=== PATIENT | male | born 1960 | race Caucasian/White ===

== ENCOUNTER 2016-12-30 19:05 | Inpatient (IN) | payer OTHER ==
[~2016-12-30] VITALS: Ht 177.8 cm; Wt 90.3 kg
--- NOTE | 2016-12-30 19:24 | ED GENERAL ADULT ---
History of Present Illness General Chief Complaint: Psychiatric Related Complaint Stated Complaint: "I WANT TO KILL MYSELF AND MAYBE YOU TOO" Vital Signs & Intake/Output Vital Signs & Intake/Output Vital Signs Date Time Temp Pulse Resp B/P Pulse O2 O2 Flow FiO2 Ox Delivery Rate 12/30 1911 96.5 109 20 156/98 96 Room Air Room Air Allergies Coded Allergies: No Known Allergies (09/17/16) Triage Note: PT TO ED WITH C/O "MY HOME IS TOO LOUD THERE IS A NEIGHBOR WHO SLEEPS ALL DAY AND IS UP BANGING ALL NIGHT". CALLED THE LANDLORD, AND THE CONCRETE MIXER TRUCK DRIVER THEY BOTH SAY IT'S THE OTHERS PROBLEM. "I FEEL LIKE HURTING MYSELF, PROBABLY TAKING PILLS". 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
--- NOTE | 2016-12-30 19:32 | ED PSYCHIATRIC COMPLAINT ---
History of Present Illness General Chief Complaint: Psychiatric Related Complaint Stated Complaint: "I WANT TO KILL MYSELF AND MAYBE YOU TOO" Source: patient Exam Limitations: no limitations Vital Signs & Intake/Output Vital Signs & Intake/Output Vital Signs Date Time Temp Pulse Resp B/P Pulse O2 O2 Flow FiO2 Ox Delivery Rate 12/31 830 97.7 94 18 141/88 97 Room Air 12/31 0609 98.2 82 20 165/77 96 Room Air 12/30 2312 96.8 85 17 142/88 96 Room Air 12/30 1911 96.5 109 20 156/98 96 Room Air Room Air ED Intake and Output 12/31 0000 12/30 1200 Intake Total Output Total Balance Patient 190 lb Weight Allergies Coded Allergies: No Known Allergies (09/17/16) Reconcile Medications Aripiprazole 5 MG TABLET 1 TAB PO DAILY ANXIETY (Reported) Bupropion HCl (Bupropion XL) 150 MG TAB.ER.24H 1 TAB PO QAM ANXIETY (Reported ) Hydroxyzine Pamoate 25 MG CAPSULE 1 CAP PO BID SLEEP (Reported) Ibuprofen 600 MG TABLET 1 TAB PO TID PAIN (Reported) with food Sertraline HCl 100 MG TABLET 1 TAB PO DAILY DEPRESSION (Reported) Triage Note: PT TO ED WITH C/O "MY HOME IS TOO LOUD THERE IS A NEIGHBOR WHO SLEEPS ALL DAY AND IS UP BANGING ALL NIGHT". CALLED THE LANDLORD, AND THE MINUTE CLERK FOR BASIC TRAFFIC THEY BOTH SAY IT'S THE OTHERS PROBLEM. "I FEEL LIKE HURTING MYSELF, PROBABLY TAKING PILLS". Triage Nurses Notes Reviewed? yes Onset: Abrupt Duration: week(s): (FEW), worse persistent since (TODAY) Timing: recent history Severity: severe HPI: This is a 55-year-old male who presents to the ER voluntarily stating that he can't take it anymore and that he wants to hurt himself. He states that he has been having a lot of arguments with a tenant downstairs in the building. He states that they play loud music and or laterally along and he cannot get any sleep. He is called the police every night for the past 4 nights to complaint. He states that instead of resolving his problems as documented into trouble with coughs. He states at this point he feels the lambert like him to walk out of the place and has no place to go. He states that he is desperate and wants to kill himself. Today he took a few of NyQuil as well as took 4 pills of Benadryl to hurt himself. Although he is not specific. He says that he feels he could harm anybody specifically the tendon. He states he feels less strongly about that at this time. He is very upset. He tried to call [facility] for assistance but that did not work out. (BALDO HILARIO MD) Past History Travel History Traveled to [place] past 21 day No Medical History Any Pertinent Medical History? 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 No (BALDO HILARIO MD) Review of Systems Review of Systems Constitutional: Denies: chills, fever. EENTM: Reports: no symptoms. Respiratory: Denies: cough. Cardiovascular: Denies: chest pain. GI: Reports: no symptoms. Genitourinary: Reports: no symptoms. Musculoskeletal: Reports: no symptoms. Skin: Reports: no symptoms. Neurological/Psychological: Reports: anxiety, depressed, emotional problems. Hematologic/Endocrine: Denies: bruising, bleeding. Immunologic/Allergic: Reports: no symptoms. All Other Systems: Reviewed and Negative (BALDO HILARIO MD) Physical Exam Physical Exam General Appearance: well developed/nourished, alert, awake, anxious, mild distress Head: atraumatic Eyes: Bilateral: PERRL, EOMI. Ears, Nose, Throat: normal pharynx, normal ENT inspection, hearing grossly normal Neck: normal inspection, supple Respiratory: normal breath sounds Cardiovascular: regular rate/rhythm Gastrointestinal: soft, non-tender Extremities: normal range of motion Neurological/Psychiatric: no motor/sensory deficits, awake, alert, calm Appearance/Memory/Insight: impaired insight Behavoir/Eye Contact/Speech: cooperative, normal speech Skin: intact, normal color, warm/dry SAD PERSONS SAD PERSONS Response Value Male Sex? yes 1 Age <19 or >45 years? yes 1 Depression/Hopelessness? yes 2 Previous Attempts/Psych Care yes 1 Rational Thinking Loss? yes 2 Single//? yes 1 Social Support? has no support 1 Stated Future Intent? yes 2 Total 11 SAD PERSONS Done? yes (SULAIMAN HESS,BALDO) Progress Differential Diagnosis: ANXIETY, DEPRESSION, SI, , BIPOLAR, SCHIZOPHRENIA Plan of Care: Orders Procedure Date/time Status Regular Diet 12/31 L Active Regular Diet 12/31 B Complete Admit to inpatient psych 12/31 1059 Active Lab Add-on Test 12/31 105 Active Patient Data - inpatient psych 12/31 1047 Active Admit to inpatient psych 12/31 104 Active Vital Signs 12/31 UNK Active Nursing Misc 12/31 UNK Active Alternative Nursing Therapy 12/31 UNK Active Activity/Ambulation 12/31 UNK Active TSH REFLEX 12/30 1957 Active LIPID PANEL 12/30 1957 Active Continuous Observation Monitor 12/30 1930 Active URINE DRUGS OF ABUSE 12/30 1930 Complete ACETOMINOPHEN 12/30 1930 Active SALICYLATE 12/30 1930 Active ETHANOL 12/30 1930 Active COMPREHENSIVE METABOLIC PANEL 12/30 1930 Active CBC WITHOUT DIFFERENTIAL 12/30 1930 Complete ED CRISIS PSYCH CONSULT 12/30 1930 Active Current Medications Sig/Gallo Start time Last Medication Dose Stop Time Status Admin Acetaminophen 650 MG Q6P PRN 12/31 1100 UNVr (Tylenol) Al Hydroxide/Mg 30 ML Q4-6 PRN PRN 12/31 1100 UNVr Hydroxide (Maalox Plus) Gabapentin 300 MG Q6P PRN 12/31 1100 UNVr (Neurontin) Magnesium Hydroxide 30 ML AT BEDTIME PRN 12/31 1100 UNVr (Milk Of Magnesia) Trazodone HCl 50 MG AT BEDTIME NEED.. 12/31 1100 UNVr (Desyrel) Lisinopril 20 MG DAILY 12/31 1050 UNVr (Prinivil) Aripiprazole 10 MG DAILY 12/31 1049 UNVr (Abilify) Laboratory Tests 12/30/161957: Anion Gap 10, Estimated GFR > 60, BUN/Creatinine Ratio 17.8, Glucose 99, Calcium 9.8, Total Bilirubin 0.7, AST 24, ALT 29, Alkaline Phosphatase 68, Total Protein 7.2, Albumin 4.0, Globulin 3.2, Albumin/Globulin Ratio 1.3, Triglycerides Pending, Cholesterol Pending, LDL Cholesterol, Calc Pending, HDL Cholesterol Pending, Cholesterol/HDL Ratio Pending, TSH &T3 &Free T4 Intrp Pending, CBC w Diff NO MAN DIFF REQ, RBC 5.24, MCV 88.3, MCH 29.5, RDW 13.1, MPV 7.6, Gran % 55.9, Lymphocytes % 32.7, Monocytes % 9.7 H, Eosinophils % 1.2, Basophils % 0.5 , Absolute Granulocytes 5.0, Absolute Lymphocytes 2.9, Absolute Monocytes 0.9 H , Absolute Eosinophils 0.1, Absolute Basophils 0, PUBS MCHC 33.4, Salicylates < 1.0, Acetaminophen < 10.0 L, Serum Alcohol < 10.0 12/30/16 1940: Urine Opiates Screen < 100.00, Methadone Screen < 40, Barbiturate Screen < 60, Ur Phencyclidine Scrn < 6.00, Amphetamines Screen < 100, U Benzodiazepines Scrn < 85, Urine Cocaine Screen < 50, Urine Cannabis Screen < 5.00 Hand-Off Endorsed To: BUSTER ROBERTS MD Endorsed Time: 2300 Pending: consult (CRISIS REEVALUATION IN AM) (BALDO HILARIO MD) Hand-Off Endorsed To: VIOLETTE DEL CID MD Endorsed Time: 07 Pending: consult (BUSTER ROBERTS MD) Departure Departure Disposition: STILL A PATIENT Condition: Stable Clinical Impression Primary Impression: Anxiety Secondary Impressions: Suicidal ideation Referrals: PATIENT HAS NO PRIMARY CARE DR (PCP/Family) Departure Forms: Customer Survey General Discharge Information (BALDO HILARIO MD) Psych Admission Note Psychiatric Admission: I have seen and evaluated ZAID ALLEN. I have also reviewed all the pertinent lab results and diagnostic results. ZAID ALLEN will be admitted to our inpatient Psychiatric unit for treatment and care. (VIOLETTE DEL CID MD)
[2016-12-30 20:07] LABS: ABSOLUTE BASOPHIL COUNT 0 /CUMM (0.0-0.2); ABSOLUTE EOSINOPHIL COUNT 0.1 /CUMM (0.0-0.7); ABSOLUTE LYMPH COUNT 2.9 /CUMM (1.2-3.4); ABSOLUTE MONOCYTE COUNT 0.9 /CUMM (0.10-0.60); BASOPHIL % 0.5 % (0.0-2.0); EOSINOPHIL % 1.2 % (0-5); GRANULOCYTE % 55.9 % (42.2-75.2); HEMATOCRIT 46.3 % (42-52); MEAN CORPUSCULAR HGB 29.5 PG (27.0-31.0); MEAN CORPUSCULAR HGB CONC 33.4 G/DL (33.0-37.0); MEAN CORPUSCULAR VOLUME 88.3 FL (80.0-94.0); MEAN PLATELET VOLUME 7.6 FL (7.4-10.4); PLATELET COUNT 272 /CUMM (130-400); RBC DISTRIBUTION WIDTH 13.1 % (11.5-14.5); RED BLOOD CELL CT 5.24 /CUMM (4.70-6.10); WHITE BLOOD CELL COUNT 8.9 /CUMM (4.8-10.8)
[2016-12-30] MEDS ORDERED: SERTRALINE HCL100 MG PO (20:23)
[2016-12-30] MEDS ORDERED: HYDROXYZINE PAM25 M2 PO (20:23)
[2016-12-30] MEDS ORDERED: ARIPIPRAZOLE5 M1 PO (20:24)
[2016-12-30] MEDS ORDERED: IBUPROFEN600 M1 PO (20:25)
[2016-12-30] MEDS ORDERED: BUPROPION XL150 MG PO (20:26)
--- NOTE | 2016-12-30 22:38 | ED PSYCH CRISIS CONSULTATION ---
Crisis Consult Basic Assessment Date of Consult: 12/30/16 Responsible Person/Accompanied By: self Insurance Authorization: Insurance #1: Insurance name: JOSE ALLEN Phone number: Policy number: [id number] Group number: Authorization number: ED Provider: Patient's ED Provider: BALDO HILARIO MD Primary Care Physician: Patient's PCP: PATIENT HAS NO PRIMARY CARE DR PCP's Phone Number: Current Psychiatrist: [facility] Chief Complaint: Psychiatric Related Complaint Patient's Quote: Where i stay is a nightmare. I vomit and puke it is so bad. Present Illness: Pt is a 56yo male self-presenting at [place] ED this evening with complaint of SI related to conflict with his neighbor in apt below. PT also reports HI stating "I want to choke her. I'd love to see her ". Pt reports neighbor is psychotic and uses crack cocaine and stays up all night banging on the carney and ceiling keeping him awake. He reports getting only 1 hr sleep last evening. He reports that he has attempted to address this with Sally ANGLIN, the landlord and [employer] but reports no one can do anything about it. He reports earlier today taking 4 benadryls and a glass of nyquil to go to sleep but also with the thought that he didn't care if he didn't wake up. Pt has a prior diagnosis of schizophrenia and anxiety d/o and is precribed Zoloft and Abilify. Pt reports current medications help mute the voices. 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 He has a prior hx of inpatient psychiatric treatment at [facility] with most recent 2013 due to superficial cutting. Pt reports no recent sib since 2013. Pt reports a hx of homeless and living at [facility] prior to gaining housing at current residence about 1 yr ago. Pt reports no family supports. he reports both parents are and 2 siblings are related to drug abuse. he reports having one other brother who is drug involved and that they don't have much contact. Pt reports occasional etoh and no drug use since using cocaine in the 80s. Pt reports wanting different housing and states returning to the [facility] would be better than what he is currently enduring. pt presents as somewhat anxious but relatively engaged and forthcoming with history. Patient is alert and OX3. PT will be h/o in ED with plan to re-eval as well as coordinate care with [facility] and [facility] provider. Patient's Address: [address] [place] [address] [place] [address] Other Phone Number: Who Do You Live With? Patient/Self Family/Informants Interviewed: no family identified Allergies - Coded Allergies: No Known Allergies (09/17/16) Current Medications - Scheduled Medications Aripiprazole 5 MG TABLET 1 TAB PO DAILY ANXIETY #30 (Reported) Entered as Reported by SUNITHA BOWENS on 12/30/162023 Bupropion HCl (Bupropion XL) 150 MG TAB.ER.24H 1 TAB PO QAM ANXIETY #30 ( Reported) Entered as Reported by SUNITHA BOWENS on 12/30/162025 Hydroxyzine Pamoate 25 MG CAPSULE 1 CAP PO BID SLEEP #60 (Reported) Entered as Reported by SUNITHA BOWENS on 12/30/162022 Ibuprofen 600 MG TABLET 1 TAB PO TID PAIN #90 (Reported) Entered as Reported by SUNITHA BOWENS on 12/30/162024 Sertraline HCl 100 MG TABLET 1 TAB PO DAILY DEPRESSION #45 (Reported) Entered as Reported by SUNITHA BOWENS on 12/30/162022 Laboratory Results: Laboratory Tests 12/30/161957: Anion Gap 10, Estimated GFR > 60, BUN/Creatinine Ratio 17.8, Glucose 99, Calcium 9.8, Total Bilirubin 0.7, AST 24, ALT 29, Alkaline Phosphatase 68, Total Protein 7.2, Albumin 4.0, Globulin 3.2, Albumin/Globulin Ratio 1.3, CBC w Diff NO MAN DIFF REQ, RBC 5.24, MCV 88.3, MCH 29.5, RDW 13.1, MPV 7.6, Gran % 55.9, Lymphocytes % 32.7, Monocytes % 9.7 H, Eosinophils % 1.2, Basophils % 0.5, Absolute Granulocytes 5.0, Absolute Lymphocytes 2.9, Absolute Monocytes 0.9 H, Absolute Eosinophils 0.1, Absolute Basophils 0, PUBS MCHC 33.4, Salicylates < 1.0, Acetaminophen < 10.0 L, Serum Alcohol < 10.0 12/30/161939: Urine Opiates Screen < 100.00, Methadone Screen < 40, Barbiturate Screen < 60, Ur Phencyclidine Scrn < 6.00, Amphetamines Screen < 100, U Benzodiazepines Scrn < 85, Urine Cocaine Screen < 50, Urine Cannabis Screen < 5.00 (JOSE FLOREZ LCSW) Past History Past Medical History Neurological: NONE EENT: NONE Cardiovascular: hypertension Respiratory: NONE Gastrointestinal: NONE Hepatic: NONE Renal: NONE Musculoskeletal: NONE Psychiatric: bipolar disease, schizophrenia, SUICIDE ATTEMPT Endocrine: NONE Blood Disorders: NONE Cancer(s): NONE 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 pt is medication compliant Physical Limitations (Interventions): n/a Psychiatric Treatment History Psych Treatment Psychiatric Treatment Yes Inpatient Treatment Yes Outpatient Treatment Yes Location of Treatment Inpatient [facility] - last 2013; current outpatient [facility] Reason for Treatment schizophrenia anxiety Response to Treatment treatment and medication compliant Diagnosis by History: Pt reports Schizaophrenia, ADHD, Autism Substance Use/Abuse History Drug Use/Abuse Substances Used/Abused No Substance Abuse Treatment Substance Abuse Treatment Past Substance Abuse [place] No Inpatient Treatment No Outpatient Treatment No Comments: reports occasional etoh. reports cocaine use in the 80s. (JOSE FLOREZ LCSW) Current Mental Status Mental Status Orientation: Person, Place, Situation Affect: Anxious Speech: WNL Neuro-vegetative: Helpless, Sleep Disturbance Appearance Appearance- Dress/Hygiene: hospital scrubs, glasses, Behaviors Thought Process: Flight of Ideas Thought Content: Auditory Hallucinations Memory: WNL Insight: Fair SI/HI Risk Assessment Past Suicidal Ideation/Attempts Yes Current Suicidal Ideation/Att Yes Past Homicidal Ideation/Att: No Current Homicidal Ideation/Attempts No Degree of Intent: Thoughts/No Intent Danger To: Others, Self Gravely Disabled: Poor Impulse Control Risk Factors: high anxiety/distress, history of suicide atmpts, SA/MH hospitalized, isolate/no social support, lives alone, male, limited support Lethality Ratin PTSD Checklist PTSD Done? patient declined ED Management Sitter: Yes Restraints: No (JOSE FLOREZ LCSW) DSM5/PS Stressors/Medical Prob Diagnosis' (DSM 5, Stressors, Medical): Schizophrenia(F20.9) Unspecified anxiety d/o (F41.9) housing Current GAF: 35 Comments: pt is highly reactive and anxious regarding his report of downstairs tenant being up all night banging and making noise so he is unable to sleep. Pt reports he only slept 1hr last evening and can't take it anymore. Pt reports that he took 4 benadryls and a glass of nyquil earlier today to sleep but also had thoughts that it would be better if he didn't wake up. (JOSE FLOREZ LCSW) Departure Disposition Psych Medical Clearance Date: 12/30/16 Medically Cleared at: 2129 Time Started: 2134 Time Ended: 2214 Psychiatrist Consulted: Suzanna Dacosta MD Disposition Established: 12/30/16 Time Disposition Established: 2219 Plan for Disposition - Modality: H/O re-eval Facility: [facility] Rationale for Disposition: Pt has passive SI situational to conflict with tenant downstairs. Plan to h/o and re-eval in morning with opportunity to discuss case with [facility] contact and [facility] provider. Referrals PATIENT HAS NO PRIMARY CARE DR (PCP/Family) (JOSE FLOREZ LCSW) Disposition Psych Medical Clearance Date: 12/31/16 Time Started: 929 Time Ended: 954 Psychiatrist Consulted: Almas Weaver MD Disposition Established: 12/31/16 Time Disposition Established: 929 Plan for Disposition - Modality: Inpatient Psychiatry Facility: [facility] Rationale for Disposition: Mood stablization and safety. Type of IP Admission: Voluntary (SHAWN RAMIREZ,KOURTNEY) Addendum Addendum Pt presented this morning with SI and HI. Pt said he wanted to and hopes he would not wake up. He expressed he does not feel safe returning to his apartment as he is worried about his neighbor getting hurt and himself, " I think she has a record so it is not a good situation and I don't want to get arrested." Pt reported his plan is to continue using Nyquil with his medications Zoloft and Abilify and "wouldn't mind not waking up." Pt reports no social or family supports and feels he is not getting the help he needs at this time. He reports 10/10 for depression, poor appetite and feeling nausea due to loss of sleep and anxiety. He said the landlord has not taken care of this situation yet. Pt has been living there for 11 mos since December 2015. Pt is willing to be admitted voluntarily for mood stablization and safety. This advertising copywriter attempted to collect collateral information from [facility] housing:Candice [phone] x [phone] , [facility]: prescriber (?) Cheli: [phone] Krystina ([facility]) reported he is not being seen clinically by [facility] and transferred advertising copywriter to Chinyere's packing and final assembly supervisor, Gregg for collateral information in shelter case manager is out on vacation. Gregg , hvac manager packing and final assembly supervisor, was not available. Chinyere Sepulvedaadrian(hvac manager) [phone] x [phone]: Reports pt does not have a history of being violent but preseverates on the tenant downstairs. They are "working to rectify the situation". He is observed to suffer from hallucinations and paranoid thoughts toward others " thinks he cannot walk by [facility] because the workers are talking about him" . Chinyere expressed the situation has caused a lot of distress for him and has seen a notable decline in his mental health. (SHAWN RAMIREZ,KOURTNEY)
--- NOTE | 2016-12-31 10:38 | IP CRISIS DIAG ASSESS PSYCH ---
Diagnostic Assessment Basic Assessment Insurance Authorization: Insurance #1: Insurance name: JOSE ALLEN Phone number: Policy number: [id number] Group number: Authorization number: [id number] Primary Care Physician: Patient's PCP: PATIENT HAS NO PRIMARY CARE DR PCP's Phone Number: Patient's Quote: Where i stay is a nightmare. I vomit and puke it is so bad. Present Illness: Pt is a 56yo male self-presenting at [place] ED this evening with complaint of SI related to conflict with his neighbor in apt below. PT also reports HI stating "I want to choke her. I'd love to see her ". Pt reports neighbor is psychotic and uses crack cocaine and stays up all night banging on the carney and ceiling keeping him awake. He reports getting only 1 hr sleep last evening. He reports that he has attempted to address this with Fernando ANGLIN, the landlord and [facility] but reports no one can do anything about it. He reports earlier today taking 4 benadryls and a glass of nyquil to go to sleep but also with the thought that he didn't care if he didn't wake up. Pt has a prior diagnosis of schizophrenia and anxiety d/o and is precribed Zoloft and Abilify. Pt reports current medications help mute the voices. He reports intermodal customer service engagement in treatment at [facility]. He has a prior hx of inpatient psychiatric treatment at [place] with most recent 2013 due to superficial cutting. Pt reports no recent sib since 2013. Pt reports a hx of homeless and living at [facility] prior to gaining housing at current residence about 1 yr ago. Pt reports no family supports. he reports both parents are and 2 siblings are related to drug abuse. he reports having one other brother who is drug involved and that they don't have much contact. Pt reports occasional etoh and no drug use since using cocaine in the 80s. Pt reports wanting different housing and states returning to the jail would be better than what he is currently enduring. pt presents as somewhat anxious but relatively engaged and forthcoming with history. Patient is alert and OX3. PT will be h/o in ED with plan to re-eval as well as coordinate care with [facility] and [facility].>>>>>Yeyo Holley [facility] Pt presented this morning with SI and HI. Pt said he wanted to and hopes he would not wake up. He expressed he does not feel safe returning to his apartment as he is worried about his neighbor getting hurt and himself, " I think she has a record so it is not a good situation and I don't want to get arrested." Pt reported his plan is to continue using Nyquil with all his medications Zoloft and Abilify and "wouldn't mind not waking up." Pt reports no social or family supports and feels he is not getting the help he needs at this time. He reports 10/10 for depression, poor appetite and feeling nausea due to loss of sleep and anxiety. He said the landlord has not taken care of this situation yet. Pt has been living there for 11 mos since December 2015. Pt is willing to be admitted voluntarily for mood stablization and safety. This designer/writer attempted to collect collateral information from [facility] housing:Candice [phone] x [phone] , [facility]: prescriber (?) Cheli: [phone] Krystina ([facility]) reported he is not being seen clinically by [facility] and transferred designer/writer to Chinyere's watch supervisor, Gregg for collateral information in case manager specialist is out on vacation. Gregg , manager military watch supervisor, was not available. Chinyere Ratliff (manager military) [phone] x [phone]: Reports pt does not have a history of being violent but preseverates on the tenant downstairs. They are "working to rectify the situation". He is observed to suffer from hallucinations and paranoid thoughts toward others " thinks he cannot walk by [facility] because the workers are talking about him" . Chinyere expressed the situation has caused a lot of distress for him and has seen a notable decline in his mental health. Patient's Address: [place] [id number] Other Phone Number: Who Do You Live With? Patient/Self Feel Safe Where You Live? No Marital Status: single Do You Have Children? No Primary Language? Singaporean Language(s) Spoken At Home: Singaporean Family/Informants Interviewed: no family identified Allergies - Coded Allergies: No Known Allergies (09/17/16) Current Medications - Scheduled Medications Aripiprazole 5 MG TABLET 1 TAB PO DAILY ANXIETY #30 (Reported) Entered as Reported by SUNITHA BOWENS on 12/30/162023 Bupropion HCl (Bupropion XL) 150 MG TAB.ER.24H 1 TAB PO QAM ANXIETY #30 ( Reported) Entered as Reported by SUNITHA BOWENS on 12/30/162025 Hydroxyzine Pamoate 25 MG CAPSULE 1 CAP PO BID SLEEP #60 (Reported) Entered as Reported by SUNITHA BOWENS on 12/30/162022 Ibuprofen 600 MG TABLET 1 TAB PO TID PAIN #90 (Reported) Entered as Reported by SUNITHA BOWENS on 12/30/162024 Sertraline HCl 100 MG TABLET 1 TAB PO DAILY DEPRESSION #45 (Reported) Entered as Reported by SUNITHA BOWENS on 12/30/162022 Past History Past Surgical History Surgical History R SHOULDER, DEV SEPTUM, INGUINAL HERNIA X 3 Abuse/Trauma History Trauma History/Current Trauma: Denies Legal History Current Legal Status: none Have you ever been arrested? Yes Pending Court Dates: denied Maintenance Dispatcher denied Psychosocial History Strengths/Capabilities: The pt is able to articulate his needs, the pt is connected to an outpatient provider. pt is medication compliant Physical Limitations (Interventions): n/a Psychiatric Treatment History Psych Treatment Psychiatric Treatment Yes Inpatient Treatment Yes Outpatient Treatment Yes Location of Treatment Inpatient [place] - last 2013; current outpatient [facility] Reason for Treatment schizophrenia anxiety Response to Treatment treatment and medication compliant Diagnosis by History: Pt reports Schizaophrenia, ADHD, Autism Risk Factors: high anxiety/distress, history of suicide atmpts, SA/MH hospitalized, isolate/no social support, lives alone, male, limited support Substance Use/Abuse History Drug Use/Abuse minimum 12mo Hx Substances Used/Abused No Substance Abuse Treatment Substance Abuse Treatment Past Substance Abuse [place] No Inpatient Treatment No Outpatient Treatment No Sexual History Sexually Active No # of partners 0 Sexual Orientation Heterosexual Use of Protection No Sexual Concerns: Denies Education History Highest Level of Education: high school/GED Preferred Learning Style: visual Current Mental Status Mental Status Orientation: Person, Place, Situation Affect: Anxious, Angry, Depressed, Hopeless Speech: Perseveration, WNL Neuro-vegetative: Appetite Decreased, Energy Decreased, Helpless, Sleep Disturbance Appearance Appearance- Dress/Hygiene: hospital scrubs, glasses, Behaviors Thought Process: Flight of Ideas, Tangential Thought Content: Auditory Hallucinations Memory: WNL Insight: Fair SI/HI Risk Assessment - Minimum 6mo History- Past Suicidal Ideation/Attempts Yes Current Suicidal Ideation/Att Yes Past Homicidal Ideation/Att: No Current Homicidal Ideation/Attempts Yes Degree of Intent: Plan Danger To: Others, Self Gravely Disabled: Poor Impulse Control Risk Factors: high anxiety/distress, history of suicide atmpts, SA/MH hospitalized, isolate/no social support, lives alone, male, limited support Lethality Ratin Needs/Init TX Plan/Goals: Mood stabilization and safety, individual and group and therapy, and medication evaluation. AUDIT-C Questionnaire: AUDIT-C Questionnaire: Response Value ETOH use in the past year Monthly or less 1 # drinks typical/day 3 or 4 1 6 or > drinks per occasion Less than monthly 1 Total 3 DSM5/PS Stressors/Medical Prob Diagnosis' (DSM 5, Stressors, Medical): Schizophrenia(F20.9) Unspecified anxiety d/o (F41.9) 12/30/16>>Yeyo Holley [facility] F20.9 Schizophrenia F41.9 unspecified anxiety d/o F32.9 Unspecified depression d/o medical: unknown psychosocial: limited primary supports, housing, unemployed 12/31/16 Current GAF: 25 Comments: pt is highly reactive and anxious regarding his report of downstairs tenant being up all night banging and making noise so he is unable to sleep. Pt reports he only slept 1hr last evening and can't take it anymore. Pt reports that he took 4 benadryls and a glass of nyquil earlier today to sleep but also had thoughts that it would be better if he didn't wake up.>>Yeyo TERRAZASW
--- NOTE | 2016-12-31 11:50 | SOCIAL WORKER SOCIAL HX PSYCH ---
Social History Basic Assessment Insurance Authorization: Insurance #1: Insurance name: JOSE [employer] Phone number: Policy number: [id number] Group number: Authorization number: [id number] Curr Source of Income/Entitlements: food stamps, SSI, unemployment compensation Primary Care Physician: Patient's PCP: TOM LIAO APRN PCP's Present Problem: Pt is a 56yo male self-presenting at [place] ED this evening with complaint of SI related to conflict with his neighbor in apt below. PT also reports HI stating "I want to choke her. I'd love to see her ". Pt reports neighbor is psychotic and uses crack cocaine and stays up all night banging on the carney and ceiling keeping him awake. He reports getting only 1 hr sleep last evening. He reports that he has attempted to address this with Fernando ANGLIN, the landlord and [facility] but reports no one can do anything about it. He reports earlier today taking 4 benadryls and a glass of nyquil to go to sleep but also with the thought that he didn't care if he didn't wake up. Pt has a prior diagnosis of schizophrenia and anxiety d/o and is precribed Zoloft and Abilify. Pt reports current medications help mute the voices. He reports terminal clerk engagement in treatment at [facility]. He has a prior hx of inpatient psychiatric treatment at [place] with most recent 2013 due to superficial cutting. Pt reports no recent sib since 2013. Pt reports a hx of homeless and living at [facility] prior to gaining housing at current residence about 1 yr ago. Pt reports no family supports. he reports both parents are and 2 siblings are related to drug abuse. he reports having one other brother who is drug involved and that they don't have much contact. Pt reports occasional etoh and no drug use since using cocaine in the 80s. Pt reports wanting different housing and states returning to the detention would be better than what he is currently enduring. pt presents as somewhat anxious but relatively engaged and forthcoming with history. Patient is alert and OX3. PT will be h/o in ED with plan to re-eval as well as coordinate care with [facility] and [facility] provider.>>>>>Yeyo TERRAZASW Pt presented this morning with SI and HI. Pt said he wanted to and hopes he would not wake up. He expressed he does not feel safe returning to his apartment as he is worried about his neighbor getting hurt and himself, " I think she has a record so it is not a good situation and I don't want to get arrested." Pt reported his plan is to continue using Nyquil with all his medications Zoloft and Abilify and "wouldn't mind not waking up." Pt reports no social or family supports and feels he is not getting the help he needs at this time. He reports 10/10 for depression, poor appetite and feeling nausea due to loss of sleep and anxiety. He said the landlord has not taken care of this situation yet. Pt has been living there for 11 mos since December 2015. Pt is willing to be admitted voluntarily for mood stablization and safety. This administrative underwriter attempted to collect collateral information from [facility] housing:Candice [phone] x [phone] , [facility]: prescriber (?) Cheli: [phone] Krystina ([facility]) reported he is not being seen clinically by [facility] and transferred administrative underwriter to Chinyere's butcher supervisor, Gregg for collateral information in telephonic case manager is out on vacation. Gregg , data warehousing specialist butcher supervisor, was not available. Chinyere Evy (data warehousing specialist) [phone] x [phone]: Reports pt does not have a history of being violent but preseverates on the tenant downstairs. They are "working to rectify the situation". He is observed to suffer from hallucinations and paranoid thoughts toward others " thinks he cannot walk by [facility] because the workers are talking about him" . Chinyere expressed the situation has caused a lot of distress for him and has seen a notable decline in his mental health Primary Language? Kuwaiti Language(s) Spoken At Home: Kuwaiti Living Situation Rents or Owns Home? rents [facility] home Feel Safe Where You Are Living No Comments: Pt does not feel safe at this time. Allergies - Coded Allergies: No Known Allergies (09/17/16) Current Medications - Scheduled Medications Aripiprazole 5 MG TABLET 1 TAB PO DAILY ANXIETY #30 (Reported) Entered as Reported by SUNITHA BOWENS on 12/30/162023 Bupropion HCl (Bupropion XL) 150 MG TAB.ER.24H 1 TAB PO QAM ANXIETY #30 ( Reported) Entered as Reported by SUNITHA BOWENS on 12/30/162025 Hydroxyzine Pamoate 25 MG CAPSULE 1 CAP PO BID SLEEP #60 (Reported) Entered as Reported by SUNITHA BOWENS on 12/30/162022 Ibuprofen 600 MG TABLET 1 TAB PO TID PAIN #90 (Reported) Entered as Reported by SUNITHA BOWENS on 12/30/162024 Sertraline HCl 100 MG TABLET 1 TAB PO DAILY DEPRESSION #45 (Reported) Entered as Reported by SUNITHA BOWENS on 12/30/162022 Past History Past Medical History Neurological: NONE EENT: NONE Cardiovascular: hypertension Respiratory: NONE Gastrointestinal: NONE Hepatic: NONE Renal: NONE Musculoskeletal: NONE Psychiatric: bipolar disease, schizophrenia, SUICIDE ATTEMPT Endocrine: NONE Blood Disorders: NONE Cancer(s): NONE FEED MIXER HELPER/Reproductive: NONE Past Surgical History Surgical History: non-contributory /Family History Place/Country of Origin: [place] Childhood Family Constellation: Pt reported his family is all and has 1 distant brother Primary Childhood Caretakers: mother Family Life During Childhood: Pt stated he was primarily raised by one parent. DCF Involvement? Yes Explain: Pt said he was a "criminal" kid but could not verbalize or identify incidents. Mother's Age (Current/): 55 Relationship w/Mother: was close with his mom Father's Age (Current/): 58 Relationship w/Father: father was not involved, mainly raised by mother Any Sibling(s)? Yes Sibling's Gender(s)/Age(s): female Sibling 1: (49 ), male Sibling 2: (58 ), male Sibling 3: (57) Relationship w/Sibling(s): Pt reported he was close with his sister and distant with his brothers Relationship w/Friends: Pt reports no friends at this time, keeps to himself. Family Psych/Sub Abuse/Add Hx: Pt reported family drug of choice was fentanyl. Both his sister and brohter OD. Abuse/Trauma History Trauma History/Current Trauma: Denies Legal History Legal Guardian/Address/Phone: No Current Legal Status: none Pending Court Dates: No Have you ever been arrested Yes Hx of Juvenile Legal Charges? Yes If Yes: status offense (Pt said he has no record) Hx of Adult Legal Charges? No Civil Proceedings: No Domestic Relations Court: No Child Protective Serv Involvmnt No Field Support Technician denied Psychosocial History Strengths/Capabilities: The pt is able to articulate his needs, the pt is connected to an outpatient provider. pt is medication compliant Weaknesses: Pt. has limited primary and social supports in the community. He listed his data warehousing specialist as his emergency contact. Physical Limitations (Interventions): n/a Last Physical: 2015 History of Seizures? No History of Blackouts? Yes Last Blackout: Pt could not recall ADL Limitations: No [place]/Social/Peer Relations None Meaningful Activities: No Childhood Yazdanism: no restoration stated Current Denominational Affiliation: no restoration stated Is Spirituality Important to You? No Patient's Ethnicity: Cultural/Ethnic Issues: No Are There Developmental Issues? No Milestones Achieved: fine motor, gross motor Psychiatric Treatment History Psych Treatment Inpatient Treatment Yes Outpatient Treatment Yes Location of Treatment Inpatient [place] - last 2013; current outpatient [facility] Reason for Treatment schizophrenia anxiety Response to Treatment treatment and medication compliant Current Window/Distribution Clerk: [facility] Diagnosis: Pt reports Schizaophrenia, ADHD, Autism Psychodynamic Issues: Pt has family loss of 2 siblings. Risk Factors: high anxiety/distress, history of suicide atmpts, SA/MH hospitalized, isolate/no social support, lives alone, male, limited support Substance Use/Abuse History Drug Use/Abuse Substance Used/Abused No History Have Had Periods of Sobriety? Yes Explain: Pt reports he only occasionally drinks alcohol and go months with out it. Relapse History? No Have You Ever Attended AA? Yes (once in the past) Do You Attend AA Currently? No Do You Have a Sponsor? No Other Community Resources Used: No Symptoms of Use: Pt reports occasional alcohol use Substance Abuse Treatment Substance Abuse Treatment Inpatient Treatment No Outpatient Treatment No Sexual History Sexually Active No # of partners 0 Sexual Orientation Heterosexual Use of Protection No Sexual Concerns: Denies Education History Highest Level of Education: high school/GED Highest Grade Completed: 12 Vocational Year Completed: na Number of College Years: 0 College Degree/Major: na Other Degree(s): no Preferred Learning Style: visual HX of Learning Difficulties: Learning Disabilities Barriers to Learning: None reported Special Communication Needs: None reported Employment History Employment Unemployed Not in Labor Force: Disabled 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 History Have You Been in The ? Yes If Yes, Explain: Pt reported a hx of being in the [employer] "for a couple months." Type of Discharge: General Date of Discharge: 1981 Current Mental Status Mental Status Orientation: Person, Place, Situation Affect: Anxious, Angry, Depressed, Hopeless Speech: Perseveration, WNL Neuro-vegetative: Appetite Decreased, Energy Decreased, Helpless, Sleep Disturbance Appearance Appearance- Dress/Hygiene: hospital scrubs, glasses, Behaviors Thought Process: Flight of Ideas, Tangential Thought Content: Auditory Hallucinations Memory: WNL Insight: Fair SI/HI Risk Assessment Past Suicidal Ideation/Attempts Yes Current Suicidal Ideation/Att Yes Past Homicidal Ideation/Att: No Current Homicidal Ideation/Attempts Yes Degree of Intent: Plan Danger To: Others, Self Gravely Disabled: Poor Impulse Control Risk Factors: High Anxiety/Distress, SA/MH Hospitalization(s), Isolated/no social suppor, Lives alone, Male, Poor impulse control Lethality Ratin - Conclusion and Recommendations for treatment - and discharge planning Summary: Pt is a 56yo male self-presenting at [place] ED this evening with complaint of SI related to conflict with his neighbor in apt below. PT also reports HI stating "I want to choke her. I'd love to see her ". Pt reports neighbor is psychotic and uses crack cocaine and stays up all night banging on the carney and ceiling keeping him awake. He reports getting only 1 hr sleep last evening. He reports that he has attempted to address this with Fernando ANGLIN, the [employer] and [facility] but reports no one can do anything about it. He reports earlier today taking 4 benadryls and a glass of nyquil to go to sleep but also with the thought that he didn't care if he didn't wake up. Pt has a prior diagnosis of schizophrenia and anxiety d/o and is precribed Zoloft and Abilify. Pt reports current medications help mute the voices. He reports chcf engagement in treatment at [facility]. He has a prior hx of inpatient psychiatric treatment at [place] with most recent 2013 due to superficial cutting. Pt reports no recent sib since 2013. Pt reports a hx of homeless and living at [facility] prior to gaining housing at current residence about 1 yr ago. Pt reports no family supports. he reports both parents are and 2 siblings are related to drug abuse. he reports having one other brother who is drug involved and that they don't have much contact. Pt reports occasional etoh and no drug use since using cocaine in the 80s. Pt reports wanting different housing and states returning to the detention would be better than what he is currently enduring. pt presents as somewhat anxious but relatively engaged and forthcoming with history. Patient is alert and OX3. PT will be h/o in ED with plan to re-eval as well as coordinate care with [facility] and [facility].>>>>>Yeyo TERRAZASW Pt presented this morning with SI and HI. Pt said he wanted to and hopes he would not wake up. He expressed he does not feel safe returning to his apartment as he is worried about his neighbor getting hurt and himself, " I think she has a record so it is not a good situation and I don't want to get arrested." Pt reported his plan is to continue using Nyquil with all his medications Zoloft and Abilify and "wouldn't mind not waking up." Pt reports no social or family supports and feels he is not getting the help he needs at this time. He reports 10/10 for depression, poor appetite and feeling nausea due to loss of sleep and anxiety. He said the landlord has not taken care of this situation yet. Pt has been living there for 11 mos since December 2015. Pt is willing to be admitted voluntarily for mood stablization and safety. This administrative underwriter attempted to collect collateral information from [facility]:Candice [phone] x [phone] , [facility]: prescriber (?) Cheli: [phone] Krystina ([facility]) reported he is not being seen clinically by [facility] and transferred administrative underwriter to Chinyere's butcher supervisor, Gregg for collateral information in telephonic case manager is out on vacation. Gregg , data warehousing specialist butcher supervisor, was not available. Chinyere Ratliff (data warehousing specialist) [phone] x [phone]: Reports pt does not have a history of being violent but preseverates on the tenant downstairs. They are "working to rectify the situation". He is observed to suffer from hallucinations and paranoid thoughts toward others " thinks he cannot walk by [facility] because the workers are talking about him" . Chinyere expressed the situation has caused a lot of distress for him and has seen a notable decline in his mental health. Pt willing to be admitted for mood stablization and safety.
[2016-12-31 12:20] VITALS: BP 127/96
[2016-12-31] MEDS ORDERED: PRINIVIL20 M1 PO (13:47)
[2016-12-31 15:50] VITALS: BP 134/93
[2016-12-31 19:18] VITALS: BP 144/95
[2016-12-31 19:54] VITALS: BP 144/95
[2017-01-01 07:46] VITALS: BP 143/94
--- NOTE | 2017-01-01 10:04 | SOCIAL WORKER PROG NOTE PSYCH ---
Social Work Progress Note Progress Note Met with Best this morning, he stated he has been very depressed and upset about his neighbor who is per Best is harrasing him - banging on carney, and yelling. He stated ever since he moved into the apartment in January 2017, the roommate was combative but it got worse in the winter. Best stated 'I feel like if this continues I will kill myself or kill her...I think about choking her." He stated he feels like he "can't escape the situation, and nothing seems to resolve the issue." The police have been called numerous times, and they arrive and the roommate is calm (a female - who has psychiatric issues, and is "on drugs," per patient. He reported he has takes 2 of his hydroxiziene and over the counter medication in order to try to sleep and not hear the noise she makes. Best reports he doesn't want to return to live there, is hoping his director of housing at [facility], [place] [phone], is looking for another place for him to live. He denies having AH/VH..."the medication helps." He reports when he is not taking his medication it is much worse. He reports past history of substance abuse alcohol, was drinking and doing drugs in 1989's (ETOH and Cocaine), lost his job in 1992, no disability. He has been sober since 2011, but reported having a beer 3 months ago. He reports history of using valium in the 80's but no use since. He has been to in the past but not in a long time. His siblings - sister overdosed 2yrs ago she was 49yo and his brother also ingested drugs, and overdosed. Best attends a group at [facility] in [place], takes a bus there 1x per week, and has therapist and prescriber at [facility] in [place] - Pilar Leon APRN. He stated he has no one in his life - no friends, or supports. He stated he is applying for diability 2nd time - through [facility]. Gave him name of [employer] Wanda Loco, Esq, and phone number. Actually called her with patient for him to make a connection with Ms. Loco. Best will keep her number but will continue to work with [facility] regarding disability process. Best stated he feels safe on the unit. HIs appetite is better, slept Ok. Continues to report SI/HI. He knows Rita Rodríguez LCSW is his clinician.
--- NOTE | 2017-01-01 11:24 | PN- Att Addend ---
Attending Addendum Attending Brief Note Chief complaint: Suicidal ideation History of present illness: Patient seen and examined. Plan of care discussed with the medical team and the patient. Available lab work and radiology test reports were reviewed. Patient is 56-year-old male with past history of hypertension currently on lisinopril and history of schizophrenia and depression who presents with increasing depression and social ideation. He recently has been having trouble with a neighboring Catie. Please is involved. Patient over the course of several days have become more more and more agitated. He made statements alluding to hurt himself as well as he may statement about homicidal intent. Review system: Denies any recent fever URI symptoms abdominal pain chest pain fever chills nausea vomiting or diarrhea. Otherwise culprit versus was negative Past medical history- history of depression, suicide ideation and attempt, schizophrenia and hypertension Patient has been admitted several years ago to [facility] Family history: Father of a dysphagia cancer and also had prostate cancer; mother had brain aneurysm and hypertension Social history: Patient nonsmoker doesn't drink alcohol he did use cocaine by snorting in but currently clean. Medication: Medication list was reviewed Allergies : No known drug allergy reported Vital Signs Date Time Temp Pulse Resp B/P Pulse O2 O2 Flow FiO2 Ox Delivery Rate 01/02 0845 92 143/94 01/01 0746 97.9 92 143/94 12/31 1953 97.3 99 144/95 12/31 1918 100 144/95 12/31 1550 100 134/93 12/31 1220 98.1 92 127/96 12/31 1130 98.2 104 20 146/97 12/31 1123 98.2 104 20 146/97 96 Intake & Output 01/01 1600 01/01 0800 01/01 0000 Intake Total Output Total Balance Patient 199 lb Weight Exam: General: Patient awake alert oriented without any distress CVS: S1 plus S2 without any murmur or gallops Chest: Few scattered crepitation without any wheeze. There is no respiratory distress. Abdomen: Soft nontender, bowel sound present, no guarding or rebound PULLING UNIT FLOORHAND: Awake alert oriented without any focal neuro deficit and follows command appropriately Extremities: No edema; no clubbing or cyanosis noted Labs 12/30/161957: Anion Gap 10, Estimated GFR > 60, BUN/Creatinine Ratio 17.8, Glucose 99, Calcium 9.8, Total Bilirubin 0.7, AST 24, ALT 29, Alkaline Phosphatase 68, Total Protein 7.2, Albumin 4.0, Globulin 3.2, Albumin/Globulin Ratio 1.3, CBC w Diff NO MAN DIFF REQ, RBC 5.24, MCV 88.3, MCH 29.5, RDW 13.1, MPV 7.6, Gran % 55.9, Lymphocytes % 32.7, Monocytes % 9.7 H, Eosinophils % 1.2, Basophils % 0.5, Absolute Granulocytes 5.0, Absolute Lymphocytes 2.9, Absolute Monocytes 0.9 H, Absolute Eosinophils 0.1, Absolute Basophils 0, PUBS MCHC 33.4, Salicylates < 1.0, Acetaminophen < 10.0 L, Serum Alcohol < 10.0 12/30/161939: Urine Opiates Screen < 100.00, Methadone Screen < 40, Barbiturate Screen < 60, Ur Phencyclidine Scrn < 6.00, Amphetamines Screen < 100, U Benzodiazepines Scrn < 85, Urine Cocaine Screen < 50, Urine Cannabis Screen < 5.00 Assessment * Suicidal ideation * Major depression * Schizophrenia * Hypertension * Elevated triglyceride Plan * Continue lisinopril 20 mg daily; patient blood pressure is mostly 144/95. He may need additional medication or offered adjustment of lisinopril dose if pressure remains above 140/90. He low-dose hydro clorethiazide 12.5 mg per day would be a good option. * Treatment of her depression as per psychiatry * Patient should follow-up with his PCP for management of his hypertriglyceridemia.
[2017-01-01 12:23] VITALS: BP 141/81
--- NOTE | 2017-01-01 14:08 | CPS MD/APRN INITIAL ASSE PSYCH ---
Psychiatric Admission Bdc Manager's Note Reviewed: Yes Patient Seen and Examined: Yes Identifying Information: Pt is a 56 year old male. Chief Complaint: Complaint of suicidal ideation related to conflict with his neighbor in the apartment below. Reaction to Hospitalization: Cooperative and hyperverbal. History of Present Illness Onset of Illness: Chronic Circumstances Leading to Admission: Self-presenting at [facility] with complaint of suicidal ideation related to conflict with his neighbor in apartment below. Problem(s) Justifying Need for Admission: Suicidal ideation Past Psychiatric History Past Diagnosis(es)- if any: Schizophrenia and anxiety Bipolar disorder Past Precipitating Factors- if any: Difficulties with neighbors. - Include inpatient and outpatient treatment Treatment History: He has a prior history of inpatient psychiatric treatment at [facility] in 2013 due to suicidal ideation and cutting with a razor. History of Suicide Attempts or Gestures Cut himself with a razor, perhaps superficially, in 2013. Was seen afterwards at [facility] inpatient. Substance Abuse History: Pt reports occasional alcohol use, does not drink to excess. Denies drug use since using cocaine in the . Allergies: Coded Allergies: No Known Allergies (09/17/16) Home Med List: Abilify 5 mg. Hydroxyzine 25 mg twice daily. Zoloft 100 mg. Ibuprofen 600 mg 3 times daily as needed for pain. 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 One brother and his sister both of unintentional drug overdose. Suicides: Denies Social History Living Situation: Patient alone lives in a [facility] apartment. Had been chronically homeless for at least 2 years prior to receiving this apartment a few months ago. Significant Relationships (family/friends): States his only significant relationship is his [facility] business banking manager. Education: High school Vocation/Occupation: On disability. 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 Legal: Denies Healthly Behaviors Screening Tobacco Screening Tobacco Use from ED Docu: Never used - If tobacco counseling indicated - the following topics are required. - #1 Recognizing dangerous situations. - #2 Coping Skills. - #3 Basic information about quitting. Status of Tobacco Cessation Counseling: N/A B/C NO TOB USE Cessation Med Status: No Tobacco Use last 30d Alcohol Screening - ETOH screen POS if BAL >=80 or Audit-C>= M4/F3 Audit-C Score from Diag Assess: 3 Blood Alcohol Level: Laboratory Tests 12/30 1957 Toxicology Serum Alcohol (<10 MG/DL) < 10.0 Alcohol Use Screening Results: Neg per Audit C &/or BAL - If ETOH counseling indicated - the following topics are required. - #1 Express concern about the patient's - drinking at unhealthy levels, include informing - of national norms for moderate drinking: - men <= 14 drinks/week, max 4 drinks/occasion - women <= 7 drinks/week, max 3 drinks/occasion - #2 Providing feedback, including linking alcohol to - negative physical effects (liver injury, hypertension) - negative emotional effects (relationship problems and - depression) - negative occupational consequences (reduced work - performance) - #3 Advising the patient to abstain from alcohol or - to drink below national norms for moderate drinking - (as listed above). Status of ETOH Use Counseling: N/A B/C NO ETOH Use Metabolic Screening - Screen if on a Neuroleptic Medication - Metabolic screening should include: - Blood Pressure, BMI, Glucose or Hgb A1c, & a - Lipid profile from within the past 365 days. Metabolic Screening () Not Applicable, patient not on a neuroleptic. OR ([x]) Patient on a neuroleptic(s) . Enter below results for Glucose or Hemoglobin A1C, and lipid panel if obtained during the last 365 days. BMI: 27.200 Blood Pressure: 141/81 Laboratory Results (If applicable): Lab Cholesterol 159 MG/DL 12/30/161957 Cholesterol/HDL Ratio 4 % 12/30/161957 Glucose 99 mg/dL 12/30/161957 HDL Cholesterol 36 mg/dL L 12/30/161957 Hemoglobin A1c 5.3 % 12/30/161957 LDL Cholesterol, Calc 81 mg/dL 12/30/161957 Triglycerides 210 mg/dL H 12/30/161957 Exam and Plan Mental Status Examination Ambulation Status: Ambulates independently with steady gait. Appearance: Appropriately dressed and groomed. Attitude towards examiner: Cooperative and hyperverbal. Psychomotor activity: Within normal limits Behavior: Cooperative and hyperverbal Quality of speech: Speech is well articulated, at times goal-directed, at times hyperverbal, average in rate, volume and tone. Hyperverbal Affect: Congruent Mood: Euthymic Suicidal Ideation: Patient reports chronic passive suicidal ideation. Reports that at this time is much better than when he came to the hospital. "I think I'll always have those thoughts." States he feels safe now. He is able to contract for safety on the unit. Homicidal Ideation: Denies Hallucinations: Denies. Has had auditory hallucinations as per history Paranoid/Delusional Material: Denies Difficulties with thought organization: Appears organized, but has been tangential as per history. Insight: Poor Judgment: Poor Orientation: Alert and oriented to person, place and time. Cognition: Within normal limits Memory Function: Within normal limits Estimate of intellectual functioning: Average Assets/Strengths Patient Identified Assets/Strengths: "I have the will to live, some kind of drive that keeps me going." Impression/Plan Impression and Plan: Schizophrenia versus schizoaffective affective disorder. 56-year-old male, with history of chronic mental health disorders. He reports family history of bipolar disorder. Complains of chronic passive suicidal ideation. Presents in a euthymic mood, however hyperverbal. He had been homeless for 2 years, and only recently was provided permanent housing. Unfortunately he finds that his neighbors are loud and uncooperative at all hours of the night, making his new home unwelcoming and "unlivable." Discontinue Abilify, and substitute Seroquel for an antipsychotic. Please consider increasing dose of Seroquel as clinically indicated. - Include all active medical diagnosis that require tx DSM 5 Diagnosis(es): Schizophrenia versus schizoaffective disorder Rule out bipolar disorder Anxiety - Initial Tx Plan for Active Psych & Medical Conditions Treatment Plan: PLAN: The patient will be monitored on the unit for safety, suicidal ideation, depression, psychosis. Additional information is needed from collaterals, including [facility] residential case manager /business banking manager Anticipate once clinically stable, that the patient will be discharged to home and family and be referred to [facility]. - Factors that would help patient function - in a less restrictive setting. Factors: Resolution of suicidal ideation.
[2017-01-01 16:01] VITALS: BP 129/78
[2017-01-01 19:52] VITALS: BP 128/88
[2017-01-02 07:54] VITALS: BP 135/89
[2017-01-02 12:52] VITALS: BP 136/79
--- NOTE | 2017-01-02 13:16 | CP SOUTH PROGRESS NOTE PSYCH ---
Psych (Inpt) Progress Note Progress Note Include the following elements, when applicable: Involvement in the active treatment of the patient with behavioral observations of the patient and the patient's response to the treatment. Review of the ongoing treatment process in the context of the treatment plan. Indication of how multi-disciplinary staff members are carrying out the treatment plan. Plans for future interventions and recommendations for revision of the treatment plan. Liaison with other physicians/providers. Progress Note: Notes reviewed, discussed patient progress with nursing staff. Interviewed patient this morning. This morning Leonardo was pleasant, cooperative, moderately disorganized and hyperverbal. Described in substantial detail, repeatedly, events leading to his presentation in the hospital especially his difficulty with his living situation. He describes improvement in mood, some hopefulness, now that he's on the unit, and hopes to find alternate housing arrangements. He denies suicidal or homicidal ideation currently. Vitals reviewed, notable for mild tachycardia. Normal blood pressure, afebrile. No new laboratory results today. Mental status exam: Leonardo is a well groomed man. appears roughly stated age. Cooperative with interview, positive psychomotor agitation. Mildly poor eye contact. Speech was increased in amount, increased in volume, otherwise within normal limits. Mood was okay, affect was slightly expansive, mildly labile. Thought process was circumstantial, content was revolving around his difficulty with housing. Denies overt perceptual disturbances. Cognition is grossly intact. Insight and judgment were poor. A/P: Continue present management as per primary team.
[2017-01-02 15:45] VITALS: BP 145/77
[2017-01-02 19:50] VITALS: BP 139/94
[2017-01-03 08:33] VITALS: BP 133/75
[2017-01-03 12:20] VITALS: BP 135/83
--- NOTE | 2017-01-03 13:59 | CP SOUTH PROGRESS NOTE PSYCH ---
Psych (Inpt) Progress Note Progress Note Include the following elements, when applicable: Involvement in the active treatment of the patient with behavioral observations of the patient and the patient's response to the treatment. Review of the ongoing treatment process in the context of the treatment plan. Indication of how multi-disciplinary staff members are carrying out the treatment plan. Plans for future interventions and recommendations for revision of the treatment plan. Liaison with other physicians/providers. Progress Note: Notes reviewed, discussed patient progress with nursing staff. Interviewed patient this morning. As he was yesterday, pleasant, cooperative, mildly hyperverbal though much less so than yesterday. Says his sleep was okay. Denies AVH. He denies suicidal or homicidal ideation currently. Vitals reviewed, pulse at high normal. No new laboratory results today. Mental status exam: Leonardo is a well groomed man. appears roughly stated age. Cooperative with interview, no psychomotor agitation today. intermittent eye contact. Speech was increased in amount, increased in volume, otherwise within normal limits. Mood was okay, affect was slightly expansive, mildly labile. Thought process was increasingly log/dom compared to yesterday. content wnl. Denies SI/HI. Denies overt perceptual disturbances. Cognition is grossly intact. Insight and judgment were limited. A/P: Continue present management as per primary team.
[2017-01-03 15:14] VITALS: BP 129/87
[2017-01-03 19:51] VITALS: BP 131/99
[2017-01-04 08:02] VITALS: BP 136/92
--- NOTE | 2017-01-04 11:43 | SOCIAL WORKER TX PLAN PSYCH ---
Treatment Plan - Please Document: - Evidence that there is ongoing collaboration between - the patient and the interdisciplinary team, - including the patient's active participation and - responsibility for engaging in the treatment regimen, - and that the treatment plan is individualized and - relevant to the patient's conditions. - Treatment plan should reflect documentation indicating - that all active therapeutic efforts are included. Strengths/Capabilities: The pt is able to articulate his needs, the pt is connected to an outpatient provider. pt is medication compliant Physical Limitations (Interventions): n/a Patient Identified Trmt Goals: "I need help with my housing situation" Discharge Plan: [facility] for outpatient medication and therapy. [facility] case management. Problem/Goals #1 Problem #1: homicidal ideation Goal (Short Term): Patient will attend 75% of groups on unit. Goal (Senior Living): Patient will no longer express have homicidal ideations towards his neighbor and will be able to identify a safety plan for discharge. Interventions: Patient will be offered medication management with the ROAD MENDER, groups on symptom management, coping skills groups, focus group, goals group, relaxation group, art therapy, accunpuncture. Dust Box Tender will help patient identify supports/ resources, assess thoughts related to living situation and identify coping skills. Dust Box Tender will assist in aftercare planning. DSM5/PS Stressors/Medical Prob Diagnosis' (DSM 5, Stressors, Medical): Schizophrenia(F20.9) Unspecified anxiety d/o (F41.9) 12/30/16>>Yeyo Holley [facility] F20.9 Schizophrenia F41.9 unspecified anxiety d/o F32.9 Unspecified depression d/o medical: unknown psychosocial: limited primary supports, housing, unemployed 12/31/16 Current GAF: 25 Treatment Team - Responsibilities of members of the treatment team include: - Medication Management- MD or ROAD MENDER - Medication Administration and Monitoring- Nurse - Group Therapy- Occupational Therapist - 1:1 Therapy,Disch Planning,family involvement-Dust Box Tender
--- NOTE | 2017-01-04 11:43 | SOCIAL WORKER PROG NOTE PSYCH ---
Social Work Progress Note Progress Note Introduced myself to Best. He said his weekend was "safe" and he spent some time "soul searching". [place] a slightly bored. He talked about how he was homeless and had worked with providers to get housing, but now is feeling unsafe in his current situation. He is having a difficult time living in the same apartment building as another female there, who he describes as very loud and difficult to be around. The housing is by [facility]. He has called the police numerous times, but reports that nothing has happened other than they talk to each of them about being respectful. He has also spoke to the landlord, but reports that nothing has come of that either. He was starting to feel very hopeless about the situation. He reports poor sleep due to these environmental issues. He has worn ear plugs and hats to try and minimize noise, but states it 's not helpful. He was becoming more symptomatic due to the stress and stated that he felt unsafe and more scared of people. He believes that they (him and this other female) will not harm eachother, but he started having more fears about himself getting hurt. He got himself to the hospital because of these increased thoughts/ feelings. He knows he will be returning to the apartment. Says his lease is up on 01/23. He is trying to work with Chinyere Martinez outpatient case manager at [facility] to possibly find another apartment. We talked about preparing to return and how he was going to deal with these stressors. He said he is involved at the [facility] social club. He also mentioned going to the library. He feels the need to get out of the apartment regularly to relieve the tension and stress. We talked about a referral to [facility], but he would like to remain at [facility]. He feels a connection to his therapist and LIFE TEACHER Sarah Leon. He gave me permission to call them. He has an upcoming appt. with his LIFE TEACHER for Wednesday and he is not sure of the time. I called [facility] [phone] and left a message. I also left a message for Sarah . Called Chinyere Martinez at [facility] and left a message as well.
[2017-01-04 12:19] VITALS: BP 134/81
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
[2017-01-04 15:51] VITALS: BP 140/92
[2017-01-04 19:49] VITALS: BP 140/87
[2017-01-05 07:39] VITALS: BP 139/90
--- NOTE | 2017-01-05 07:44 | SOCIAL WORKER PROG NOTE PSYCH ---
Social Work Progress Note Progress Note Received a message from Sarah Leon APRN that Best's appt. is for 01/06 at 8:30am. She will be canceling that. She does have an appt. with his therapist Rita on 01/08 at 8:30am. She said he can schedule a time to see her when he comes in. Best seems to be doing well today. I shared the message I received from Carolyn. He was interested in knowing if I had heard back from Chinyere at [facility]. I told him that I did not hear back. He stated this seemed to be a pattern. Best feels ready to leave tomorrow and prepared to handle the stress of returning home. He hopes that he will be able to work on finding another apartment quickly. Talked about his experience with being homeless and different services. Denies SI today. Mood is good.
--- NOTE | 2017-01-05 10:58 | CP SOUTH PROGRESS NOTE PSYCH ---
Psych (Inpt) Progress Note Progress Note Progress Note: I discussed this patient's progress to date, current mental status, treatment process in the context of the treatment plan, and discharge planning with staff/ team in the daily morning inpatient team meeting. I also met with the patient myself in individual session. A total of 15 minutes was spent with the patient with more than 50% spent in counseling and/or coordination of care. SUBJECTIVE: "The Abilify was nice. It was cozy. I'm feeling fine" OBJECTIVE: Current Medications Sig/Gallo Start time Last Medication Dose Route Stop Time Status Admin Acetaminophen 650 MG .STK-MED ONE 01/04 2145 DC PO 01/04 214 Acetaminophen 650 MG Q6P PRN 12/31 1100 AC 01/04 PO 2150 Al Hydroxide/Mg 30 ML Q4-6 PRN PRN 12/31 1100 AC Hydroxide PO Aripiprazole 15 MG 0800 01/05 0800 AC 01/05 PO 0813 Aripiprazole 5 MG ONCE ONE 01/04 1500 DC 01/04 PO 01/04 1501 1717 Aripiprazole 10 MG DAILY 12/31 1049 DC 01/04 PO 0842 Gabapentin 300 MG .STK-MED ONE 01/04 214 DC PO 01/04 214 Gabapentin 300 MG Q6P PRN 12/31 1100 AC 01/04 PO 2152 Lisinopril 20 MG DAILY 12/31 1050 AC 01/05 PO 0813 Magnesium Hydroxide 30 ML AT BEDTIME PRN 12/31 1100 AC PO Trazodone HCl 50 MG .STK-MED ONE 01/04 214 DC PO 01/04 214 Trazodone HCl 50 MG AT BEDTIME NEED.. 12/31 1100 AC 01/04 PO 2151 Vital Signs Date Time Temp Pulse Resp B/P Pulse O2 O2 Flow FiO2 Ox Delivery Rate 01/05 0813 97.6 90 20 139/90 01/05 0739 97.6 90 139/90 01/04 1949 97.7 92 140/87 01/04 1551 88 140/92 01/04 1219 93 134/81 ASSESSMENT: Patient reports he is doing well. States he feels his moods are stable. Reports feeling a little anxiety about leaving the hospital and returning to the same situation with his neighbors. States he is trying to be optimistic, and to use his "self humor." Tolerating his medications well, to good effect. Depression:0/10; (with 10 the worst.) Denies suicidal ideation, homicidal ideation, auditory hallucinations, visual hallucinations, paranoid ideation. Patient states and also believes that he will not kill himself. Speech is well articulated, goal-directed, average in rate, volume and tone. Reports that he slept "like a baby" last night. States his appetite is good. The patient understands the risks/benefits/side effects of the medication and is agreeable to continue taking them. PLAN: Anticipate discharge tomorrow. Continue with current management as patient is improving. Continue to provide support and encouragement.
[2017-01-05 11:29] VITALS: BP 150/89
[2017-01-05 16:08] VITALS: BP 152/96
[2017-01-05 19:42] VITALS: BP 150/93
[2017-01-06 07:44] VITALS: BP 148/93
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
--- NOTE | 2017-01-06 10:53 | DISCHARGE SUMMARY REPORT-PSYCH ---
Visit Information Visit Dates/Diagnosis' Admission Date: 12/31/16 Discharge Date: 01/06/17 Reason for Admission: Self-presenting at [facility] ED with complaint of suicidal ideation related to conflict with his neighbor in apartment below. Psy Discharge Primary Diag: Schizoaffective Disorder Psy Discharge Secondary Diag: Generalized anxiety d/o; HTN; history of inguinal hernia surgery , right shoulder surgery. Hospital Course Significant Lab Findings: . Lab TSH &T3 &Free T4 Intrp 1.680 uIU/mL 12/30/161957 Course Complications: None. Consultations: Patient was seen for admission history and physical by Dr. Perry. Please refer to his note for additional information. Allergies: Coded Allergies: No Known Allergies (09/17/16) Hospital Course/TX Response: The patient was monitored on the unit for safety, suicidal ideation, depression, mood stability, and auditory hallucinations. He participated in multimodal treatments on the unit. Prior to arrival in the hospital he was being treated with Abilify 5 mg daily, and this dose was titrated up to a final dose of 15 mg at bedtime. He was medicated with trazodone 50 mg at bedtime for sleep, and hydroxyzine for anxiety and for sleep as needed. He declined to have a family meeting, stating that he had no one to invite. He reports tolerating these medications well, to good effect. Today, the day of discharge, he reports that he feels safe and ready for discharge. Tolerating Abilify 15 mg at bedtime well, without complaint. Presents this morning as calm and cooperative. He does not appear to be hyperverbal this morning, however talkative and pleasant. Denies depression. Reports having some anxiety about leaving the hospital, and returning home. Difficulties among his neighbors in his apartment building are one of the stressors which brought him to the hospital. Denies suicidal ideation, homicidal ideation, auditory hallucinations, visual hallucinations, paranoid ideation. Reports that he feels that his moods are stable. Patient states and also believes that he will not kill himself. Reports he sleeping well, states trazodone is helpful. His appetite is good. Speech is well articulated, goal-directed, average in rate, volume and tone. The patient understands the risks/benefits/side effects of the medication and is agreeable to continue taking them. Patient reports tolerating his medications well, without complaint. States he feels safe and ready for discharge. Discharge HBIPS - Tobacco Use Treatment Offered Post DC Medications Offered: NA-No Tob Use >30 days Post DC Tobacco Treatment Plan: NA-No Tobacco use >30days - EtOH/Drug Use D/O Treatment Offered Post DC Medications Offered: NA-No EtOH/Drug Use D/O Post DC EtOH/SubAbuse TX Plan: NA-No EtOH/Drug Use D/O Metabolic Screening - Screen if on a Neuroleptic Medication - Metabolic screening should include: - Blood Pressure, BMI, Glucose or Hgb A1c, & a - Lipid profile from within the past 365 days. Metabolic Screening () Not Applicable, patient not on a neuroleptic. OR ([x]) Patient on a neuroleptic(s) . Enter below results for Glucose or Hemoglobin A1C, and lipid panel if obtained during the last 365 days. BMI: 27.200 Blood Pressure: 148/93 Laboratory Results (If applicable): Lab Cholesterol 159 MG/DL 12/30/161957 Cholesterol/HDL Ratio 4 % 12/30/161957 Glucose 99 mg/dL 12/30/161957 HDL Cholesterol 36 mg/dL L 12/30/161957 Hemoglobin A1c 5.3 % 12/30/161957 LDL Cholesterol, Calc 81 mg/dL 12/30/161957 Triglycerides 210 mg/dL H 12/30/161957 Discharge Instructions General Discharge Information Discharge Medications: Discharge Medications- (Dose, route, freq, indication): START taking these NEW Home Medications: Trazodone HCl Dose: ORAL, AT BEDTIME as Qty: 14 Call-In to (Trazodone HCl) 50 50 Milligram needed for INSOMNIA Refills: 0 Pharm 1 MG TABLET Aripiprazole Dose: ORAL, DAILY @8 AM for Qty: 14 Call-In to (Abilify) 15 MG 15 Milligram CLEAR THOUGHTS Refills: 0 Pharm 1 TABLET CONTINUE taking these Home Medications: Hydroxyzine Pamoate Dose: ORAL, AT BEDTIME for (Hydroxyzine Pamoate) 25 1 Capsule INSOMNIA MG CAPSULE Ibuprofen (Ibuprofen) Dose: ORAL, THREE TIMES DAILY 600 MG TABLET 1 Tablet for PAIN with food Lisinopril (Prinivil) 20 Dose: ORAL, DAILY for MG TABLET 20 Milligram HYPERTENSION STOP taking these DISCONTINUED Home Medications: Sertraline HCl (Sertraline Dose: ORAL, DAILY for DEPRESSION HCl) 100 MG TABLET 1 Tablet Reason Stopped: Per Doctor Decision Aripiprazole (Aripiprazole) 5 Dose: ORAL, DAILY for ANXIETY MG TABLET 1 Tablet Reason Stopped: Changed Dose Bupropion HCl (Bupropion XL) Dose: ORAL, Every Morning for ANXIETY 150 MG TAB.ER.24H 1 Tablet Reason Stopped: Pt Decision, not taking 1: [facility] , [address], [place] [id number] Your Preferred Pharmacy [facility] [address], [place] [address] Multiple Neuroleptics: (x) Not Applicable OR Document below three failed attempts at monotherapy, or a plan to taper to monotherapy, or augmentation of Clozapine. () Patient's Diet: Regular Patient's Activity: No restrictions DC Disposition: Patient is returning home, to his apartment in [facility] supervised housing. Recommendations: Follow-up at [facility], and at [facility]. Take medications as directed. Referred To: [facility], case management services. Contact Chinyere/Gregg. [facility] [address], [place] [address] Therapist: Rita 01/08/2017 at 8:30 in the morning. Medication Management: Pilar Leon APRN 01/27/2017 at 12:30 PM. Copies To: [facility]; [place]
--- NOTE | 2017-01-06 11:47 | SOCIAL WORKER PROG NOTE PSYCH ---
Social Work Progress Note Progress Note Pt states he understands his housing situation will not be addressed as quick as it should be, he reports "Im in a pickle, but like having a home and privacy". Encouraged pt to call registered nurse hh case manager and her dewatering filtering supervisor as needed to address concerns. I reached out to Krystina at [facility] she is out today. Pt rescheduled his appt with ADA for 01/27/17 at 12:30 and has an appointment on 01/08/17 with Rita galindo therapist at 8:30am. Pt reports feeling good, and denies si/hi.
[2017-01-06 12:24] VITALS: BP 141/94
[2017-01-06] MEDS ORDERED: ABILIFY15 M1 PO (12:50)
[2017-01-06] MEDS ORDERED: TRAZODONE HCL50 M1 PO (12:50)
== END 2017-01-06 14:15 | DRG 750 ==
LOC: ERH 19:05 → CP SOUTH 12-31 10:59 → ERHI 12-31 10:59 → CP SOUTH 12-31 12:19 → CMPBEDREQ 12-31 12:20 → CP SOUTH 12-31 12:35
PROVIDERS: Emergency Medicine; ADMIT Psychiatry & Neurology Psychiatry
DX: F25.9 Schizoaffective disorder, unspecified (principal); F41.1 Generalized anxiety disorder; I10 Essential (primary) hypertension
CPT/HCPCS: 80307; G0463; G0480; J0401

== ENCOUNTER 2017-01-12 18:34 | Emergency (ER) | payer OTHER ==
[~2017-01-12] VITALS: Ht 180.3 cm; Wt 86.2 kg
[~2017-01-12 18:34] MED LIST: ABILIFY15 M1 PO; ARIPIPRAZOLE5 M1 PO; BUPROPION XL150 MG PO; HYDROXYZINE PAM25 M2 PO; IBUPROFEN600 M1 PO; PRINIVIL20 M1 PO; SERTRALINE HCL100 MG PO; TRAZODONE HCL50 M1 PO
[2017-01-12] MEDS ORDERED: BENADRYL25 MG PO (18:55)
[2017-01-12] MEDS ORDERED: VICKS NYQUIL C354 M1 PO (18:56)
[2017-01-12] MEDS ORDERED: SERTRALINE HCL100 MG (18:57)
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
[2017-01-12 19:52] LABS: ABSOLUTE BASOPHIL COUNT 0.1 /CUMM (0.0-0.2); ABSOLUTE EOSINOPHIL COUNT 0.1 /CUMM (0.0-0.7); ABSOLUTE GRANULOCYTE CT 5.5 /CUMM (1.4-6.5); ABSOLUTE LYMPH COUNT 2.8 /CUMM (1.2-3.4); ABSOLUTE MONOCYTE COUNT 0.7 /CUMM (0.10-0.60); BASOPHIL % 0.6 % (0.0-2.0); EOSINOPHIL % 1.4 % (0-5); HEMATOCRIT 48.8 % (42-52); MEAN CORPUSCULAR HGB 29.3 PG (27.0-31.0); MEAN CORPUSCULAR HGB CONC 33.2 G/DL (33.0-37.0); MEAN CORPUSCULAR VOLUME 88.2 FL (80.0-94.0); MEAN PLATELET VOLUME 7.7 FL (7.4-10.4); PLATELET COUNT 286 /CUMM (130-400); RBC DISTRIBUTION WIDTH 13.3 % (11.5-14.5); RED BLOOD CELL CT 5.54 /CUMM (4.70-6.10); WHITE BLOOD CELL COUNT 9.2 /CUMM (4.8-10.8)
--- NOTE | 2017-01-12 21:22 | ED PSY CRISIS COLLATERAL NOTE ---
Collateral Note Collateral Note Family/Inform/Karlie Contacts: MARY ALICE spoke to Director Brenda Sauceda from the [facility] office ([phone]), for collateral information. Brenda states that the patient is not currently connected to Care and has not received services with them since February 2016.
--- NOTE | 2017-01-13 11:09 | ED PSYCH CRISIS CONSULTATION ---
Crisis Consult Basic Assessment Date of Consult: 01/13/17 Responsible Person/Accompanied By: by himself Insurance Authorization: Insurance #1: Insurance name: JOSE ALLEN Phone number: Policy number: [id number] Group number: Authorization number: ED Provider: Patient's ED Provider: ALEJANDRA HESS,BUSTER Hernandez Primary Care Physician: Patient's PCP: TOM LIAO APRN PCP's Current Psychiatrist: [facility] in [place] Chief Complaint: Psychiatric Related Complaint Patient's Quote: "my neighbor, I called the adult neuropsychologist on her again" Present Illness: Pt is a 56 year old male who was admitted to [facility] from 12/31/16 and discharged 01/06 about a week ago. Pt reports living in a stressful, unsettling apartment complex, and his neighbor "has a pitbull and drug addicts coming in and out of her home until 4am". Her lifestyle is hindering his ability to manage his anxiety on a regular basis. Pt reports he called the adult neuropsychologist on her again, and was brought here. I spoke with Gregg Santo who is the case management assistant railroad car repair supervisor at [facility] and she states that they are in the process of having his neighbor evicted, and are looking for new places Leonardo can live. In fact Leonardo states he saw an [address] that could be available [address] its a studio and on the top floor. Pt denies si/hi/ah/vh, he states "I dont want to hurt myself, I just dont want to go home". Pt is using a variety of resources during the day for support including the [employer] social club. He has an appointment at [facility] on the and is also interested in a referral for [facility], to get additional supports in dealing with his living situation. Patient's Address: [address] [place] [address] Other Phone Number: Who Do You Live With? Patient/Self Family/Informants Interviewed: Gregg Santo at [facility] case/mgmt. Will continue to offer support to Leonardo, and is aware of the situation between him and the neighbor. Is actively trying to find him a new apt and evict this neighbor "both things take time" Allergies - Coded Allergies: No Known Allergies (09/17/16) Current Medications - Scheduled Medications Aripiprazole (Abilify) 15 MG TABLET 15 MG PO 0800 CLEAR THOUGHTS #14 TAB Prescribed by LEROY SYED APRN on 01/05/17 Dextromethorphn/Acetaminoph/Cp (Vicks Nyquil Cold & Flu Liquid) (Unknown Strength) LIQUID (Unknown Dose) PO QPM SLEEP (Reported) Entered as Reported by SOFIA LAURA on 01/12/17 185 Diphenhydramine HCl (Benadryl) 25 MG CAPSULE 2 TAB PO QPM SLEEP (Reported) Entered as Reported by SOFIA LAURA on 01/12/17 185 Hydroxyzine Pamoate 25 MG CAPSULE 1 CAP PO AT BEDTIME INSOMNIA #14 CAP ( Reported) Entered as Reported by SUNITHA BOWENS on 12/30/162022 Lisinopril (Prinivil) 20 MG TABLET 20 MG PO DAILY HYPERTENSION (Reported) Entered as Reported by FROY LEE on 12/31/16 1347 Scheduled PRN Medications Ibuprofen 600 MG TABLET 1 TAB PO PRN PAIN #90 (Reported) Entered as Reported by SUNITHA BOWENS on 12/30/162024 Trazodone HCl 50 MG TABLET 50 MG PO AT BEDTIME PRN INSOMNIA #14 TAB Prescribed by LEROY SYED APRN on 01/05/17 Miscellaneous Medications Sertraline HCl (Unknown Strength) TABLET (Unknown Dose) UNKNOWN #45 (Reported ) Entered as Reported by SOFIA LAURA on 01/12/171856 Laboratory Results: Laboratory Tests 01/12/170: Urine Opiates Screen < 100.00, Methadone Screen 43, Barbiturate Screen < 60, Ur Phencyclidine Scrn < 6.00, Amphetamines Screen < 100, U Benzodiazepines Scrn < 85, Urine Cocaine Screen < 50, Urine Cannabis Screen < 5.00 01/12/171937: Anion Gap 9, Estimated GFR > 60, BUN/Creatinine Ratio 20.0, Glucose 106 H, Calcium 10.3 H, Total Bilirubin 0.7, AST 25, ALT 34, Alkaline Phosphatase 72, Total Protein 7.6, Albumin 4.2, Globulin 3.4, Albumin/Globulin Ratio 1.2, CBC w Diff NO MAN DIFF REQ, RBC 5.54, MCV 88.2, MCH 29.3, RDW 13.3, MPV 7.7, Gran % 60.0, Lymphocytes % 30.8, Monocytes % 7.2, Eosinophils % 1.4, Basophils % 0.6, Absolute Granulocytes 5.5, Absolute Lymphocytes 2.8, Absolute Monocytes 0.7 H, Absolute Eosinophils 0.1, Absolute Basophils 0.1, PUBS MCHC 33.2, Serum Alcohol < 10.0 Past History Past Medical History Neurological: NONE EENT: NONE Cardiovascular: hypertension Respiratory: NONE Gastrointestinal: NONE Hepatic: NONE Renal: NONE Musculoskeletal: NONE Psychiatric: bipolar disease, schizophrenia, SUICIDE ATTEMPT Endocrine: NONE Blood Disorders: NONE Cancer(s): NONE SECTION GANG/Reproductive: NONE Past Surgical History Surgical History: non-contributory Psychosocial History Strengths/Capabilities: The pt is able to articulate his needs, the pt is connected to an outpatient provider. pt is medication compliant Physical Limitations (Interventions): n/a Psychiatric Treatment History Psych Treatment Psychiatric Treatment Yes Inpatient Treatment Yes Outpatient Treatment Yes Location of Treatment [facility] and [facility] Reason for Treatment mood disorder Dates of Treatment December 2016 Response to Treatment managing his mood/ Diagnosis by History: Pt reports Schizaophrenia, ADHD, Autism Substance Use/Abuse History Drug Use/Abuse Substances Used/Abused No Substance Abuse Treatment Substance Abuse Treatment Past Substance Abuse [place] No Current Mental Status Mental Status Orientation: Person, Place, Situation Affect: Anxious Speech: WNL Neuro-vegetative: Concentration Poor, Helpless, Sleep Disturbance Appearance Appearance- Dress/Hygiene: appropriate Behaviors Thought Process: Flight of Ideas Thought Content: WNL Memory: WNL Insight: Fair SI/HI Risk Assessment Past Suicidal Ideation/Attempts Yes Current Suicidal Ideation/Att No Past Homicidal Ideation/Att: Yes Current Homicidal Ideation/Attempts No Degree of Intent: None Risk Factors: high anxiety/distress, lives alone, male Lethality Ratin PTSD Checklist PTSD Done? patient declined ED Management Sitter: Yes Restraints: No DSM5/PS Stressors/Medical Prob Diagnosis' (DSM 5, Stressors, Medical): Unspecified Anxiety F 41.9 hx of schizoaffective D/O F25.0 bipolar Current GAF: 35 Comments: pt is under stress related to housing, it is being addressed through [facility] case management Departure Disposition Psych Medical Clearance Date: 01/13/17 Medically Cleared at: 1030 Time Started: 1030 Time Ended: 1133 Psychiatrist Consulted: Tanvi Date Disposition Established: 01/13/17 Time Disposition Established: 1134 Plan for Disposition - Modality: IOP Facility: [facility] Follow-up Appt Date: 01/15/17 Follow-Up Appt Time: 1400 Contact: IOP Telephone: [phone] Rationale for Disposition: Consulted with Dr. Tinajero pt given a referral to [facility] as he continues to manage anxiety and depression. Pt denies si/hi/ah/vh. pt agrees to continue to work with care as they try to resolve the issue. Referrals TOM LIAO APRN (PCP/Family)
[2017-01-13 11:48] VITALS: BP 122/84
== END 2017-01-13 11:49 ==
LOC: ERH 18:34
PROVIDERS: Pediatrics
DX: F32.9 Major depressive disorder, single episode, unspecified (principal)
CPT/HCPCS: 80307; G0480